=== PATIENT | female | born 1940 | race African-American/Black ===

== ENCOUNTER 2017-11-11 08:05 | Outpatient (CLI) | payer MEDICARE, OTHER ==
--- NOTE | 2017-11-11 15:32 | Mammography Report ---
BONE DEXA:11/11/17 CLINICAL: Postmenopausal. COMPARISON: 11/05/16 TECHNIQUE: Two site bone DEXA performed on an Hologic scanner. FINDINGS: The average BMD of the lumbar spine L1-L3 is 0.862g/cm squared with a T-score of -1.4 and a Z-score of +1.0. The L4 body was excluded as an outlier because of metal hardware. This compares to 0.825g/cm squared on the last exam and represents a +4.4% change from the previous study and +1.7% change from baseline. The average BMD of the left hip is 0.797g/cm squared with a T-score of -1.2 and a Z-score of +0.6. This compares to 0.670g/cm squared on the last exam and represents a +18.9% change from the previous study and a +8.8% change from baseline.. IMPRESSION: 1. WHO classification: Osteopenia with increased fracture risk based on both spine and left hip measurements. 2. A modest improvement in spine BMD and greater improvement in left hip BMD compared to the prior exam. RECOMMENDATION: Clinical correlation and routine screening. DEFINITIONS: BMD = Bone Mineral Density T-score = BMD related to mean peak bone mass of young adult (mean expressed in Standard Deviation) Z-score = Age matched BMD expressed in SD World Health Organization (WHO) Diagnostic Criteria Normal T-score > -1 SD Osteopenia T-score between -1 and -2.4 SD Osteoporosis T-score -2.5 SD or below NOTE: BMD is not the only risk factor for fracture; also consider factors such as the patient's age, risk of falling, previous osteoporotic fracture, family history of osteoporotic fractures, current smoker, and low body weight. Z-scores are not calculated if >80 years of age.
--- NOTE | 2017-11-12 10:02 | Mammography Report ---
BILATERAL DIGITAL SCREENING MAMMOGRAM with CAD: 11/11/17 08:05:00 CLINICAL: Routine screening. COMPARISON:11/06/15 FINDINGS: The breasts are heterogeneously dense, which may obscure small masses. No mass, architectural distortion or suspicious calcifications. IMPRESSION: No mammographic evidence of malignancy. BI-RADS CATEGORY: 1 - - Negative RECOMMENDATION: Routine mammographic screening in one year. COMMENT: Patient follow-up letters are generated by our [employer] application.
== END 2017-11-11 08:06 | disposition home or self-care (01) ==
LOC: SPVWC 08:05
PROVIDERS: ATTEND Obstetrics & Gynecology Gynecology
DX: Z12.31 Encounter for screening mammogram for malignant neoplasm of breast (principal); M85.88 Other specified disorders of bone density and structure, other site; Z78.0 Asymptomatic menopausal state
CPT/HCPCS: 77067; 77080

== ENCOUNTER 2018-11-14 10:46 | Outpatient (CLI) | payer MEDICARE, OTHER ==
--- NOTE | 2018-11-14 11:37 | Mammography Report ---
BILATERAL MAMMOGRAM: FINDINGS: The breast tissue is heterogeneously dense, which could obscure detection of small masses (approximately 50%-75% glandular). No mass, distortion, suspicious calcification, or skin change is seen. No significant change when compared to prior examinations dating back to October 2016. CAD was utilized. IMPRESSION: Negative mammogram. There is no mammographic evidence of malignancy. RECOMMENDATION: Follow-up per ACS guidelines. BI-RADS CATEGORY: 1 = Negative ACR BI-RADS MAMMOGRAPHIC CODES: 0 = Needs additional imaging evaluation; 1 = Negative; 2 = Benign; 3 = Probably benign; 4 = Suspicious; 5 = Malignant; 6 = Known biopsy-proven malignancy COMMENT: 1. Dense breast tissue, i.e., adenosis, fibrocystic changes, etc., may obscure an underlying neoplasm. 2. Approximately 10% of cancers are not detected with mammography. 3. A negative mammography report should not delay biopsy if a clinically suspicious mass is present. COMMENT: Patient follow-up letters are generated in [employer].
== END 2018-11-14 10:47 | disposition home or self-care (01) ==
LOC: SPVWC 10:46
PROVIDERS: ATTEND Obstetrics & Gynecology Gynecology
DX: Z12.31 Encounter for screening mammogram for malignant neoplasm of breast (principal)
CPT/HCPCS: 77067

== ENCOUNTER 2019-11-15 08:47 | Outpatient (CLI) | payer MEDICARE, OTHER ==
--- NOTE | 2019-11-15 10:59 | Mammography Report ---
BILATERAL DIGITAL SCREENING MAMMOGRAM WITH CAD INDICATION: Routine screening mammography. TECHNIQUE: Digital bilateral 2D mammography was obtained in the craniocaudal and mediolateral obliq ue projections. This examination was interpreted with the benefit of Computer-Aided Detection analysi s. COMPARISON: 11/14/2018, 11/11/2017, 11/05/2016, 11/06/2015. FINDINGS: Breast Density: The breasts are heterogeneously dense, which may obscure small masses. No suspicious mass, microcalcifications, or architectural distortion. IMPRESSION: No evidence of breast malignancy. Recommend routine screening mammogram in one year. BI-RADS Category 1: Negative. No mammographic evidence of malignancy. Recommend routine screening m ammography in one year. A "normal" or negative report should not discourage follow up or biopsy of a clinically significant f inding. A written summary of these findings will be mailed to the patient. The patient will be entered into a mammography reporting system which will generate a reminder letter for the patient's next appointmen t at the appropriate interval. The [employer] recommends yearly mammograms starting at age 40 and continuing as l aravind as a woman is in good health. Breast MRI is recommended for women with an approximate 20-25% or greater lifetime risk of breast cancer, including women with a strong family history of breast or ova floyd cancer or who have been treated for Hodgkin's disease. Signer Name: Willam Vázquez MD Signed: 11/15/2019 10:55 AM Workstation Name: [id number]
--- NOTE | 2019-11-15 16:28 | Mammography Report ---
BONE DEXA CLINICAL: Postmenopausal, osteopenia TECHNIQUE: 2 site bone DEXA performed on an Hologic scanner. FINDINGS: Patient has underwent lumbar spine surgery. The average total BMD of the left hip is 0.770g/cm squared with a T score of -1.4 and a Z score of 0. 5. The average total BMD of the left forearm is 0.391 g/cm squared with a T score of -3.4and a Z score o f -0.4. IMPRESSION: WHO classification: Osteoporosis with high fracture risk. RECOMMENDATION: Clinical correlation and routine screening. Definitions: BMD equal bone mineral density T score = BMD related to peak bone mass of young adult (Jonatan expressed an standard deviation) Z score = age-matched BMD expressed in SD World health organization (WHO) diagnostic criteria Normal T score greater than equal to 1 standard deviation Osteopenia T score between -1 and -2.4 standard deviation Osteoporosis T score -2.5 standard deviation or below. Note: BMD is not the only risk factor for fracture; also consider factors such as the patient's age, risk of falling, previous osteoporotic fracture, family history of osteoporotic fractures, current sm oker and low body weight. Z scores are not calculated if greater than 80 years of age. Signer Name: Willam Vázquez MD Signed: 11/15/2019 4:23 PM Workstation Name: [id number]
== END 2019-11-15 08:48 | disposition home or self-care (01) ==
LOC: SPVWC 08:47
PROVIDERS: ATTEND Obstetrics & Gynecology Gynecology
DX: Z12.31 Encounter for screening mammogram for malignant neoplasm of breast (principal); N95.9 Unspecified menopausal and perimenopausal disorder; M85.80 Other specified disorders of bone density and structure, unspecified site
CPT/HCPCS: 77067; 77080

== ENCOUNTER 2020-11-18 10:04 | Outpatient (CLI) | payer MEDICARE, OTHER ==
--- NOTE | 2020-11-18 11:40 | Mammography Report ---
DIGITAL SCREENING MAMMOGRAM WITH CAD, 11/18/2020 CLINICAL INFORMATION / INDICATION: Routine screening mammography. SCREENING MAMMOGRAM TECHNIQUE: Digital bilateral 2D mammography was obtained in the craniocaudal and mediolateral obliqu e projections. This examination was interpreted with the benefit of Computer-Aided Detection analysis . COMPARISON: 11/15/2019, 11/14/2018, 11/11/2017 FINDINGS: Breast Density: The breasts are heterogeneously dense, which may obscure small masses. No dominant mass, suspicious calcifications, or architectural distortion in either breast. IMPRESSION: No mammographic evidence of malignancy. Follow up recommendation: Routine yearly BI-RADS Category 1: Negative. A "normal" or negative report should not discourage follow up or biopsy of a clinically significant f inding. A written summary of these findings will be mailed to the patient. The patient will be entered into a mammography reporting system which will generate a reminder letter for the patient's next appointmen t at the appropriate interval. The [employer] recommends yearly mammograms starting at age 40 and continuing as l aravind as a woman is in good health. Breast MRI is recommended for women with an approximate 20-25% or greater lifetime risk of breast cancer, including women with a strong family history of breast or ova floyd cancer or who have been treated for Hodgkin's disease. Signer Name: Carolina Soares MD Signed: 11/18/2020 11:36 AM Workstation Name: [id number]
== END 2020-11-18 10:05 | disposition home or self-care (01) ==
LOC: SPVWC 10:04
PROVIDERS: ATTEND Obstetrics & Gynecology Gynecology
DX: Z12.31 Encounter for screening mammogram for malignant neoplasm of breast (principal)
CPT/HCPCS: 77067

== ENCOUNTER 2021-11-25 08:43 | Outpatient (CLI) | payer MEDICARE, OTHER | END 2021-11-25 08:44 | disposition home or self-care (01) | LOC: SPVWC 08:43 | PROVIDERS: ATTEND Obstetrics & Gynecology Gynecology | DX: Z12.31 Encounter for screening mammogram for malignant neoplasm of breast (principal) | CPT/HCPCS: 77067 ==